=== PATIENT | male | born 1995 | race Caucasian/White ===

== ENCOUNTER 2019-12-14 22:40 | Emergency (ER) | payer OTHER ==
[~2019-12-14] VITALS: Ht 165.1 cm; Wt 63.5 kg
[2019-12-14 22:52] VITALS: Ht 165.1 cm; Wt 63.5 kg
[2019-12-15 02:17] VITALS: BP 115/75
== END 2019-12-15 02:17 | disposition home or self-care (01) ==
LOC: ED 22:40
DX: K04.7 Periapical abscess without sinus (principal)
CPT/HCPCS: J0295